=== PATIENT | female | born 1985 | race Caucasian/White ===

== ENCOUNTER 2019-11-18 05:31 | Inpatient (IN) ==
[2019-11-18] MEDS ORDERED: LACTATED RINGER'S 1,000 ML IV SCH ×2 (05:45→11:00)
--- NOTE | 2019-11-18 05:55 | History & Physical Report ---
Date of Service November 18, 2019 Assessment & Plan (1) Breech presentation: breech presentation at term. Plan Section. section. The patient was counseled to the nature of the procedure including alternatives such as labor. Risks were discussed including bleeding infection injury to bowel bladder ureter vessels and even baby. Deep Vein thrombosis, pulmonary embolus discussed. Breakdown of incision reviewed. Deep vein thrombosis pulmonary embolus hernia and failure of the incision to heal were discussed Patient verbalized understanding of this and was given ample time to ask questions History of Present Illness Primary Care Provider: Agnes Villarreal term breech with unsuccessful version attempt. Allergies Allergy/AdvReac Type Severity Reaction Status Date / Time amoxicillin Allergy Intermediate RASH AND Verified 11/17/19 09:13 SWELLING nickel Allergy Intermediate swelling, Verified 11/17/19 09:13 irritation Home Medications Home Medications Medication Instructions Recorded Confirmed Type breast pump #1 ea 10/13/19 11/17/19 Rx PNV cmb#95-ferrous fumarate-FA 1 tab PO DAILY 11/15/19 11/17/19 History [] Patient History Medical History History of anxiety History of depression HPV (human papilloma virus) infection Surgical History History of colposcopy S/P wisdom tooth extraction Family History (Updated 04/20/19 @ 10:57 by Candis Weiss) Grandfather (Maternal) Hypertension Hypercholesteremia Grandfather (Paternal) Hypertension Hypercholesteremia Father Hypertension Depression Grandmother (Maternal) Hypertension Osteoporosis Grandmother (Paternal) Hypertension Osteoporosis Social History (Updated 04/20/19 @ 10:58 by Candis Weiss) Preferred Language: Swedish Communication Ability: Effective Financial Administrative Assistant Required: No Beliefs That Will Affect Care: None marital status: marital status details: Toni Hopson (35) [phone] Current Living Situation: Spouse Current Living Situation Comment: 2 cats, 1 dog- pt not changing cat litter. current occupational status: employed current occupation: [place] @ [employer] Other Information That Helps Us Care for You: No Feels Safe at Home: Yes Safety Concerns: Feels Safe At This Time Smoking Status: Never smoker Do You Dip or Chew Tobacco: No ; Second Hand Exposure: No ; Tobacco Cessation Education Requested by Patient: No Hx Alcohol Use: No Hx Substance Use: No Physical Exam Constitutional: WD/WN, vitals as above Respiratory: normal respiratory effort, lungs clear to auscultation Cardiovascular: RRR, no murmur, no edema Gastrointestinal (Abdomen): normal bowel sounds, soft, nontender, no hepatosplenomegaly Genitourinary: OB Exam Abdomen: + heart tones and + breech OB Exam Monitor Tracing: + external FHT monitor used Results & Data Vital Signs (Past 12 Hours) Vital Signs Pulse BP 11/18/19 05:47 78 111/65 Code Status & VTE Plan VTE Prophylaxis Plan VTE Prophylaxis will be ordered: Yes Coding Level of Care Code None Diagnoses Breech presentation O32.1XX0
[2019-11-18 05:56] LABS: Basophils # (auto) 0.01 K/uL (0-0.2); Basophils % (auto) 0.1 %; Eosinophils % (auto) 1.4 %; Hematocrit (blood only) 41.7 % (37-47); Hemoglobin 14.2 g/dL (12.0-16.0); Immature Granulocytes # (auto) 0.05 K/uL (0.00-0.02); Immature Granulocytes % (auto) 0.7 %; Lymphocytes # (auto) 2.12 K/uL (1.2-3.4); Lymphocytes % (auto) 29.6 %; Mean Corpuscular Hemoglobin 31.6 pg (25-34); Mean Corpuscular Volume 92.9 fL (80-100); Mean Platelet Volume 11.7 fL (7.4-10.4); Monocytes # (auto) 0.52 K/uL (0.11-0.59); Monocytes % (auto) 7.3 %; Neutrophils # (auto) 4.36 K/uL (1.4-6.5); Neutrophils % (auto) 60.9 %; Platelet Count 135 K/uL (130-400); RDW Coefficient of Variation 12.9 % (11.5-14.5); RDW Standard Deviation 43.9 fL (36.4-46.3); Red Blood Count 4.49 M/uL (4.2-5.4); White Blood Count 7.16 K/uL (4.8-10.8)
[2019-11-18] MEDS ORDERED: GENTAMICIN SULFATE 100 MG in DEXTROSE 5% 100 ML IV SCH (06:00)
[2019-11-18] MEDS ORDERED: CLINDAMYCIN 900 MG in DEXTROSE 5% 50 ML IV SCH (06:00)
[2019-11-18] MEDS ORDERED: CITRIC ACID/SODIUM CITRATE 15 ML UDC PO SCH (06:00)
[2019-11-18 06:14] LABS: Mean Corpuscular Hgb Conc 34.1 g/dL (32-36)
--- NOTE | 2019-11-18 07:13 | History & Physical Bridge Note ---
Date of Service November 18, 2019 History & Physical Bridge Note I have examined the patient, reviewed the History & Physical and in the interval since the performance of the History & Physical I have noted the following changes of clinical significance: no changes noted
--- NOTE | 2019-11-18 07:26 | Anesthesiology Consultation ---
Date of Service November 18, 2019 Assessment & Plan Chart Review Chart Review: Acceptable Risk for Surgery Consults Requested none History Surgery Operation Date: 11/18/19 07:30 Proposed Procedures p Section in LD - Bryan. Anshul Love MD, FACOG Height/Weight Height: 5 ft 7 in Weight: 91.172 kg Allergies Allergy/AdvReac Type Severity Reaction Status Date / Time amoxicillin Allergy Intermediate RASH AND Verified 11/17/19 09:13 SWELLING nickel Allergy Intermediate swelling, Verified 11/17/19 09:13 irritation Medications Home Medications Medication Instructions Recorded Confirmed Last Taken breast pump #1 ea 10/13/19 11/17/19 Unknown PNV cmb#95-ferrous fumarate-FA 1 tab PO DAILY 11/15/19 11/17/19 Unknown [] NPO Date Last Intake of Fluids: 11/17/19 Time Last Intake of Fluids: 22:00 Date Last Intake of Solids: 11/17/19 Time Last Intake of Solids: 22:00 Past Medical History Medical History History of anxiety History of depression HPV (human papilloma virus) infection Past Family History Family History Grandfather (Maternal) Hypertension Hypercholesteremia Grandfather (Paternal) Hypertension Hypercholesteremia Father Hypertension Depression Grandmother (Maternal) Hypertension Osteoporosis Grandmother (Paternal) Hypertension Osteoporosis Past Surgical History Surgical History History of colposcopy S/P wisdom tooth extraction Social History Smoking Status: Never smoker Do You Dip or Chew Tobacco: No Hx Alcohol Use: No Hx Substance Use: No substance use type: does not use Physical Exam Vital Signs Last Vital Signs Temp 36.8 C 11/18/19 05:43 Pulse 78 11/18/19 05:47 Resp 18 11/18/19 05:58 BP 111/65 11/18/19 05:47 Testing Laboratory Results 11/18/19 05:44 Blood Type O Positive 11/18/19 05:41 Antibody Screen NEGATIVE 11/18/19 05:41
[2019-11-18] MEDS ORDERED: NALOXONE HCL 0.4 MG/1 ML VIAL/CARP IV PRN (07:27)
[2019-11-18] MEDS ORDERED: NALBUPHINE HCL INJ 10 MG/ML AMP IV PRN (07:27)
[2019-11-18] MEDS ORDERED: NALOXONE HCL 0.08 MG in SYRINGE 1.8 ML IV PRN (07:27)
[2019-11-18] MEDS ORDERED: NALOXONE HCL 1 MG in SODIUM CHLORIDE 0.9% 1000ML 1,000 ML IV PRN (07:27)
[2019-11-18] MEDS ORDERED: ePHEDrine sulfate 50 MG/ML AMP IV PRN (07:27)
[2019-11-18] MEDS ORDERED: LACTATED RINGER'S 500 ML IV PRN (07:27)
[2019-11-18] MEDS ORDERED: MoRPHine SULFATE PF 1 MG/ML 10 ML AMP/VIAL INT SPINAL ONE (07:27)
[2019-11-18] MEDS ORDERED: MoRPHine SULFATE 2 MG/ML CARP IV PRN (07:27)
[2019-11-18] MEDS ORDERED: PROMETHAZINE HCL 25 MG in SODIUM CHLORIDE 0.9% 50 ML IV PRN (07:27)
[2019-11-18] MEDS ORDERED: KETOROLAC 30 MG/ML VIAL IV PRN (07:27)
[2019-11-18] MEDS ORDERED: HYDROmorphone INJ 0.5 MG/0.5 ML SYR IV PRN (07:27)
[2019-11-18] MEDS ORDERED: ONDANSETRON INJ 2 MG/ML 2 ML VIAL IV PRN (07:27)
[2019-11-18] MEDS ORDERED: MEPERIDINE HCL 25 MG/ML CARP/VIAL IV PRN (07:27)
[2019-11-18] MEDS ORDERED: METOCLOPRAMIDE HCL 20 MG in SODIUM CHLORIDE 0.9% 50 ML IV PRN (07:27)
[2019-11-18] MEDS ORDERED: DiphenhydrAMINE HCL 50 MG/ML VIAL IV PRN (07:27)
[2019-11-18] MEDS ORDERED: DC INTRASPINAL MORPHINE SCH (07:30)
[2019-11-18] MEDS ORDERED: NO NARCOTICS OR SEDATIVES SCH (07:30)
[2019-11-18] MEDS ORDERED: SODIUM CHLORIDE 0.9% 1000ML 1,000 ML IV SCH (07:30)
[2019-11-18] MEDS ORDERED: MoRPHine SULFATE PF 1 MG/ML 10 ML AMP/VIAL ONE (08:09)
[2019-11-18] MEDS ORDERED: OXYTOCIN 10 UNITS/ML VIAL ONE (08:09)
[2019-11-18] MEDS ORDERED: CARBOPROST TROMETHAMINE 250 MCG/ML AMPUL ONE (08:26)
[2019-11-18] MEDS ORDERED: ePHEDrine sulfate 50 MG/ML AMP ONE (08:27)
[2019-11-18 08:37] LABS: CO2 Cord Arterial Blood 60 mmHg (39.1-73.5); HCO3 Cord Arterial Blood 25 mmol/L (19.7-28.5); PO2 Cord Arterial Blood 15 mmHg (4.1-31.7); pH Cord Arterial Blood 7.24 (7.1-7.38)
--- NOTE | 2019-11-18 08:39 | Operative Report ---
PG Post Operative Report Pre & Post Diagnosis Operation Date: 11/18/19 07:30 Pre-Op Diagnosis: Term , breech with unsuccessful version attempt Post-Op Diagnosis: Term , breech with unsuccessful version attempt. Living male child at 0803 I identified the patient and participated in the time-out.: Yes Procedure Operation Date: 11/18/19 07:30 Actual Procedures p Section in LD for living male child at 0803(Bilateral) - Ramy Love MD, FACOG Surgeon Ramy Love MD, FACOG [facility] Nurse Dr. Aguilar Estimated Blood Loss 600 Findings Consistent with Post-Op Diagnosis Specimens Cord gases, blood Description of Procedure Regional anesthetic was given by anesthesia patient had a Downs catheter inserted by nursing patient was prepped and draped in supine position with a leftward tilt preoperative antibiotics were given timeout performed Pickups with teeth were used to test the skin site and it was found adequate for incision scalpel used to make a Pfannenstiel incision cutting down through subcutaneous fat through the fascia fascia was then dissected laterally with the curved Singh's fascia was released superiorly and inferiorly from the rectus muscles with the curved Singh scissors, rectus muscle split peritoneal cavity entered in a superior location. Opening enlarged to allow exposure bladder retractor placed Metzenbaums used to dissect away the bladder flap low segment transverse incision made on the uterus with scalpel entry was done bluntly with the rotary shear operator's finger hysterotomy incision extended with the rotary shear operator's finger in the usual fashion baby was delivered then by flexion of the breech and pressure from the inventory control assistant on the abdomen then legs were delivered, arms swept toward the chest and delivered, then head delivered avoiding excessive extension, without excessive force live vigorous cord clamped and cut cord gases obtained cord blood obtained placenta removed manually within ensured all placenta removed with a moist lap sponge uterus exteriorized IV Pitocin had been started by anesthesia and uterine tone improved. The uterus was closed in 2 layers first layer and 0 Monocryl running locked second layer 0 Monocryl nonlocked after generous irrigation and suction of the cul-de-sac and bladder flap regions hemostasis was excellent uterus was placed back in the peritoneal cavity and hemostasis was excellent rectus muscles were inspected and found to be dry fascia closed with 0 Vicryl subcutaneous fat closed with 3-0 Vicryl prior to this subcutaneous fat was irrigated skin closed with 4-0 subcuticular Monocryl incision Steri-Stripped urine was clear at the end of the procedure It should be noted the anatomy of the uterus was normal, no septum or anomalies I attest to the content of the Intraoperative Record and any orders documented therein. Any exceptions are noted below.
[2019-11-18 08:40] LABS: Base Excess Cord Venous Blood -2.6 mEq/L (-7.7-1.9); Cord Venous Blood HCO3 23 mmol/L (18.4-26.8); Cord Venous Blood PCO2 44 mmHg (30.4-57.2); Cord Venous Blood PO2 29 mmHg (14.1-43.3); Cord Venous Blood pH 7.34 (7.20-7.44)
[2019-11-18 08:41] LABS: Oxygen Sat Cord Arterial Blood < 60.0 % (<60)
[2019-11-18] MEDS ORDERED: HYDROCORTISONE ACETATE 25 MG SUPP PR PRN (10:49)
[2019-11-18] MEDS ORDERED: MAGNESIUM HYDROXIDE SUSP 30 ML UDC PO PRN (10:49)
[2019-11-18] MEDS ORDERED: SUPERCREAM 0.870% 15 GM JAR EXT PRN (10:49)
[2019-11-18] MEDS ORDERED: BENZOCAINE 20% AER SPR 82.5 GM CAN EXT PRN (10:49)
[2019-11-18] MEDS ORDERED: NON-FORMULARY MEDICATION (Pnv Cmb#95-Ferrous Fumarate-Fa [Prenatal] 1 TAB) PO SCH (10:49)
[2019-11-18] MEDS ORDERED: SENNA 8.6 MG TAB PO PRN (10:49)
[2019-11-18] MEDS ORDERED: DIPHTHERIA/TETANUS/PERTUSSIS 0.5 ML SYR/VIAL IM ONE (11:00)
--- NOTE | 2019-11-18 11:50 | Anesthesiology Progress Note ---
Date of Service November 18, 2019 Anesthesia Post Procedure Vital Signs Vital Signs: Temp Pulse Pulse Resp BP BP Pulse Ox 11/18/19 11:45 59 L 96 11/18/19 11:41 50 L 109/57 L 11/18/19 11:40 50 L 95 11/18/19 11:35 62 96 11/18/19 11:31 53 L 112/59 L 11/18/19 11:30 54 L 97 11/18/19 11:25 52 L 96 11/18/19 11:21 55 L 119/58 L 11/18/19 11:20 66 98 11/18/19 11:15 56 L 96 11/18/19 11:10 56 L 105/57 L 96 11/18/19 11:05 54 L 97 11/18/19 11:00 56 L 114/59 L 97 11/18/19 10:55 57 L 97 11/18/19 10:50 59 L 114/59 L 96 11/18/19 10:45 52 L 97 11/18/19 10:40 56 L 107/55 L 96 11/18/19 10:35 63 97 11/18/19 10:30 57 L 109/56 L 97 11/18/19 10:25 65 97 11/18/19 10:20 53 L 105/57 L 97 11/18/19 10:15 65 97 11/18/19 10:10 52 L 112/59 L 97 11/18/19 10:05 59 L 96 11/18/19 10:00 56 L 111/57 L 97 11/18/19 09:55 53 L 97 11/18/19 09:50 63 105/55 L 97 11/18/19 09:45 56 L 96 11/18/19 09:40 36.4 C L 55 L 18 110/58 L 96 11/18/19 09:35 54 L 97 11/18/19 09:30 53 L 110/60 96 11/18/19 09:25 55 L 96 11/18/19 09:21 59 L 104/54 L 11/18/19 09:20 68 98 11/18/19 09:15 65 97 11/18/19 09:12 78 91 11/18/19 09:11 53 L 118/55 L 11/18/19 09:10 58 L 18 96 11/18/19 09:05 55 L 96 04/23/20 09:00 53 L 115/59 L 98 11/18/19 08:55 54 L 97 11/18/19 08:50 52 L 118/57 L 97 11/18/19 08:45 53 L 96 11/18/19 08:41 36.4 C L 55 L 55 L 16 122/60 122/60 11/18/19 08:40 57 L 97 11/18/19 05:58 18 11/18/19 05:47 78 111/65 11/18/19 05:43 36.8 C 18 Transfer of Care Handoff Completed per policy Notes Mental Status: alert / awake / arousable and participated in evaluation Patient Amnestic to Procedure: Yes Nausea / Vomiting: adequately controlled Pain: adequately controlled Airway Patency, RR, SpO2: stable & adequate BP & HR: stable & adequate Hydration State: stable & adequate Neuraxial Anesthesia: was administered and sensory block is resolving Anesthetic Complications: no major complications apparent
[2019-11-18] MEDS: OXYTOCIN 20 UNITS in LACTATED RINGER'S 1,000 ML IV SCH ×2 (12:50→20:23)
[2019-11-18] MEDS: SIMETHICONE 80 MG CHEW PO SCH ×3 (14:42→20:23)
[2019-11-18] MEDS: DOCUSATE SODIUM 100 MG CAP PO SCH (20:23)
[2019-11-19] MEDS ORDERED: KETOROLAC 30 MG/ML VIAL IV PRN (01:27)
[2019-11-19] MEDS ORDERED: MEPERIDINE HCL 50 MG/ML CARP IV PRN (01:27)
[2019-11-19] MEDS ORDERED: ONDANSETRON INJ 2 MG/ML 2 ML VIAL IV PRN (01:27)
[2019-11-19] MEDS ORDERED: DiphenhydrAMINE HCL 50 MG/ML VIAL IV PRN (01:27)
[2019-11-19] MEDS ORDERED: PROMETHAZINE HCL 25 MG in SODIUM CHLORIDE 0.9% 50 ML IV PRN (01:27)
[2019-11-19] MEDS ORDERED: OXYCODONE/ACETAMINOPHEN 5mg/325mg TAB PO PRN (01:27)
[2019-11-19] MEDS: IBUPROFEN 600 MG TAB PO PRN ×5 (05:13→23:39)
[2019-11-19 06:19] LABS: Basophils # (auto) 0.01 K/uL (0-0.2); Basophils % (auto) 0.1 %; Eosinophils # (auto) 0.12 K/uL (0-0.5); Eosinophils % (auto) 1.7 %; Hematocrit (blood only) 33.3 % (37-47); Hemoglobin 11.4 g/dL (12.0-16.0); Immature Granulocytes # (auto) 0.02 K/uL (0.00-0.02); Immature Granulocytes % (auto) 0.3 %; Lymphocytes # (auto) 1.13 K/uL (1.2-3.4); Lymphocytes % (auto) 16.4 %; Mean Corpuscular Hemoglobin 31.2 pg (25-34); Mean Corpuscular Hgb Conc 34.2 g/dL (32-36); Mean Corpuscular Volume 91.2 fL (80-100); Mean Platelet Volume 11.1 fL (7.4-10.4); Monocytes # (auto) 0.43 K/uL (0.11-0.59); Monocytes % (auto) 6.3 %; Neutrophils # (auto) 5.16 K/uL (1.4-6.5); Neutrophils % (auto) 75.2 %; Platelet Count 107 K/uL (130-400); RDW Coefficient of Variation 12.7 % (11.5-14.5); RDW Standard Deviation 42.7 fL (36.4-46.3); Red Blood Count 3.65 M/uL (4.2-5.4); White Blood Count 6.87 K/uL (4.8-10.8)
--- NOTE | 2019-11-19 07:50 | Obstetrical Progress Note ---
Date of Service November 19, 2019 Assessment & Plan (1) state: PPD 1 cont current care Subjective Ambulation: limited ambulation Voiding: no voiding problems Passing Gas:: No Diet Tolerance:: regular diet Lochia:: Small Feeding Type:: breast feeding Current Pain Level(1-10): 1 no ext pain Physical Exam Constitutional WD/WN, vitals as above Respiratory normal respiratory effort, lungs clear to auscultation Gastrointestinal (Abdomen) normal bowel sounds, soft, nontender, no hepatosplenomegaly (incision cdi, ext neg) Results & Data Vital Signs (Past 12 Hours) Vital Signs Temp Pulse Resp BP Pulse Ox 11/19/19 04:45 98.4 F 61 17 100/62 96 11/19/19 01:40 15 96 11/19/19 00:40 15 98 11/18/19 23:40 98.2 F 57 L 16 105/67 96 11/18/19 22:11 16 97 11/18/19 21:03 16 96 11/18/19 20:15 98.2 F 62 16 92/57 L 98 11/18/19 20:00 16 97
[2019-11-19] MEDS: SIMETHICONE 80 MG CHEW PO SCH ×4 (08:48→21:26)
[2019-11-19] MEDS: PRENATAL VITAMIN 1 TAB PO SCH (08:49)
[2019-11-19] MEDS: DOCUSATE SODIUM 100 MG CAP PO SCH ×2 (08:49→21:26)
--- NOTE | 2019-11-19 11:00 | Anesthesiology Progress Note ---
Date of Service November 19, 2019 Anesthesia Post Procedure Vital Signs Vital Signs: Temp Pulse Pulse Resp BP BP Pulse Ox 11/19/19 07:35 36.8 C 56 L 16 105/67 11/19/19 04:45 36.9 C 61 17 100/62 96 11/19/19 01:40 15 96 11/19/19 00:40 15 98 11/18/19 23:40 36.8 C 57 L 16 105/67 96 11/18/19 22:11 16 97 11/18/19 21:03 16 96 11/18/19 20:15 36.8 C 62 16 92/57 L 98 11/18/19 20:00 16 97 11/18/19 19:00 16 98 11/18/19 18:00 16 98 11/18/19 17:21 16 97 11/18/19 16:20 16 97 11/18/19 15:50 36.6 C 57 L 16 107/66 97 11/18/19 15:20 16 96 11/18/19 12:00 16 98 11/18/19 11:55 53 L 97 11/18/19 11:51 53 L 112/53 L 11/18/19 11:50 61 97 11/18/19 11:45 59 L 96 11/18/19 11:41 50 L 109/57 L 11/18/19 11:40 36.4 C L 50 L 16 95 11/18/19 11:35 62 96 11/18/19 11:31 53 L 112/59 L 11/18/19 11:30 54 L 97 11/18/19 11:25 52 L 96 11/18/19 11:21 55 L 119/58 L 11/18/19 11:20 66 98 11/18/19 11:15 56 L 96 11/18/19 11:10 56 L 105/57 L 96 11/18/19 11:05 54 L 97 11/18/19 11:00 56 L 114/59 L 97 Pain Intensity Abdomen: Pain Intensity: 6 Transfer of Care Handoff Completed per policy Notes Mental Status: alert / awake / arousable and participated in evaluation Nausea / Vomiting: adequately controlled Pain: adequately controlled Airway Patency, RR, SpO2: stable & adequate BP & HR: stable & adequate Hydration State: stable & adequate Neuraxial Anesthesia: was administered and sensory block resolved Anesthetic Complications: no major complications apparent and Pt Satisfied with anesthetic care Notes: Patient denies headache this morning. Denies weakness or residual numbness in lower extremity. Patient encouraged to contact anesthesia for any concerns or new headache.
[2019-11-19] MEDS ORDERED: bisacodyL 5 MG TABEC PO SCH (20:00)
[2019-11-20 06:38] LABS: Hematocrit (blood only) 33.3 % (37-47); Hemoglobin 11.4 g/dL (12.0-16.0)
--- NOTE | 2019-11-20 07:01 | Obstetrical Progress Note ---
Date of Service November 20, 2019 Assessment & Plan (1) state: satisfactory /post-op course continue current care plan Day #:: 2 Subjective Ambulation: ambulating normally Voiding: no voiding problems Passing Gas:: Yes Diet Tolerance:: regular diet Lochia:: Small Feeding Type:: breast feeding Review of Systems All systems reviewed & are unremarkable except as noted in HPI & below Physical Exam Constitutional WD/WN, vitals as above Gastrointestinal (Abdomen) Inspection/Auscultation: + abdominal surgical incision (intact & dry) Psychiatric A+Ox3, euthymic affect Genitourinary OB Exam Abdomen: + fundal height Fundus: + firm Results & Data Vital Signs (Past 12 Hours) Vital Signs Temp Pulse Resp BP 11/19/19 23:45 98.2 F 58 L 16 119/73
[2019-11-20] MEDS: IBUPROFEN 600 MG TAB PO PRN (08:31)
[2019-11-20] MEDS: PRENATAL VITAMIN 1 TAB PO SCH (08:31)
[2019-11-20] MEDS: DOCUSATE SODIUM 100 MG CAP PO SCH (08:31)
[2019-11-20] MEDS: SIMETHICONE 80 MG CHEW PO SCH (08:31)
[2019-11-20] MEDS ORDERED: bisacodyL 10 MG SUPP PR PRN (08:33)
--- NOTE | 2019-11-24 08:13 | Discharge Summary ---
Date of Service November 24, 2019 Admission HPI Per Admitting Provider term breech with unsuccessful version attempt. Admission Exam (Per Admitting) Constitutional WD/WN, vitals as above Respiratory normal respiratory effort, lungs clear to auscultation Cardiovascular RRR, no murmur, no edema Gastrointestinal (Abdomen) normal bowel sounds, soft, nontender, no hepatosplenomegaly (incision cdi, ext neg) Discharge Data Procedures Performed Operation Date: 11/18/19 07:30 Actual Procedures p Section in LD for living male child at 0803(Bilateral) - Ramy Love MD, [facility] Course (1) state: satisfactory /post-op course continue current care plan Postoperative from section patient meets discharge criteria as she is ambulating well tolerating an oral diet has minimal bleeding and no extremity pain. Discharge instructions were reviewed and prescriptions were sent to her pharmacy of choice patient advised to call with any concerns and follow-up in the office discussed Coding Level of Care Code None Diagnoses state Z39.2
== END 2019-11-20 13:05 | disposition home or self-care (01) | DRG 788 ==
LOC: 4S1 05:31 → EDSTATUS 07:30 → 4S2 12:24

== ENCOUNTER 2021-11-02 05:36 | Inpatient (IN) ==
--- NOTE | 2021-10-30 13:46 | Anesthesiology Consultation ---
Date of Service October 30, 2021 Assessment & Plan (1) Encounter for pre-operative examination: Chart Review Chart Review: spiritual counselor initiated Per nursing assessment 10/30/21, patient denies any recent travel. No known Covid infection in the past 90 days. Patient is fully vaccinated for Covid. No known Covid positive exposures or Covid related symptoms. Preop Covid testing scheduled 10/31/21= will await results C section 11/18/19= Done under SAB at L3-4 with one attempt. (Baby was breech) History Surgery Operation Date: 11/02/21 07:30 Proposed Procedures p Section in LD Delivery of baby through abdominal incision - Kelly Cerna MD, FACOG Height/Weight Height: 5 ft 7 in Weight: 92.986 kg Allergies Allergy/AdvReac Type Severity Reaction Status Date / Time amoxicillin Allergy Intermediate RASH AND Verified 10/30/21 08:52 SWELLING nickel Allergy Intermediate swelling, Verified 10/30/21 08:52 irritation Medications Home Medications Medication Instructions Recorded Confirmed Last Taken vit no.95-ferrous 1 tab PO DAILY 03/22/21 10/30/21 Unknown fumarate 28 mg-folic acid 800 mcg tablet () Past Medical History Medical History History of anxiety History of depression History of kidney infection 2007 *NO SURGICAL INTERVENTION REQUIRED HPV (human papilloma virus) infection Past Family History Family History Grandfather (Maternal) Hypercholesteremia Hypertension Grandfather (Paternal) Hypercholesteremia Hypertension Father Depression Hypertension Grandmother (Maternal) Osteoporosis Hypertension Grandmother (Paternal) Osteoporosis Hypertension Other No family history of adverse response to anesthesia Past Surgical History Surgical History History of delivery X 1 History of colposcopy Nausea and vomiting after administration of anesthetic agent S/P wisdom tooth extraction Social History Smoking Status: Never smoker Hx Alcohol Use: No Hx Substance Use: No substance use type: does not use
[2021-11-02] MEDS ORDERED: GENTAMICIN SULFATE 470 MG in DEXTROSE 5% 100 ML IV SCH (06:00)
[2021-11-02] MEDS ORDERED: CLINDAMYCIN 900 MG in DEXTROSE 5% 50 ML IV SCH (06:00)
[2021-11-02] MEDS ORDERED: CITRIC ACID/SODIUM CITRATE 15 ML UDC PO SCH (06:00)
[2021-11-02] MEDS ORDERED: LACTATED RINGER'S 1,000 ML IV SCH ×2 (06:00→09:11)
[2021-11-02] MEDS ORDERED: GENTAMICIN CONSULT ACTIVE PRN (06:22)
[2021-11-02 06:50] LABS: Hematocrit (blood only) 40.2 % (37-47); Mean Corpuscular Hemoglobin 31.8 pg (25-34); Mean Corpuscular Hgb Conc 34.8 g/dL (32-36); Mean Corpuscular Volume 91.4 fL (80-100); Platelet Count 123 K/uL (130-400); RDW Coefficient of Variation 13.2 % (11.5-14.5); RDW Standard Deviation 43.8 fL (36.4-46.3); White Blood Count 6.27 K/uL (4.8-10.8)
[2021-11-02 06:51] LABS: Basophils # (auto) 0.02 K/uL (0-0.2); Basophils % (auto) 0.3 %; Eosinophils % (auto) 1.6 %; Giant Platelets 1+; Immature Granulocytes # (auto) 0.03 K/uL (0.00-0.02); Immature Granulocytes % (auto) 0.5 %; Lymphocytes # (auto) 2.44 K/uL (1.2-3.4); Lymphocytes % (auto) 38.9 %; Monocytes # (auto) 0.53 K/uL (0.11-0.59); Monocytes % (auto) 8.5 %; Neutrophils # (auto) 3.15 K/uL (1.4-6.5); Neutrophils % (auto) 50.2 %; Platelet Estimate Decreased (Normal)
[2021-11-02] MEDS ORDERED: OXYTOCIN 10 UNITS/ML 10ML VIAL ONE (06:56)
[2021-11-02] MEDS ORDERED: PHENYLEPHRINE 100MCG/ML 5ML SYR ONE (06:56)
[2021-11-02] MEDS ORDERED: ONDANSETRON INJ 2 MG/ML 2 ML VIAL ONE (06:56)
[2021-11-02] MEDS ORDERED: fentaNYL citrate 100 MCG/2 ML VIAL ONE (06:57)
[2021-11-02] MEDS ORDERED: MoRPHine SULFATE PF 1 MG/ML 10 ML AMP/VIAL ONE (06:57)
--- NOTE | 2021-11-02 07:22 | History & Physical Bridge Note ---
Date of Service November 02, 2021 History & Physical Bridge Note I have examined the patient, reviewed the History & Physical and in the interval since the performance of the History & Physical I have noted the following changes of clinical significance: no changes noted
[2021-11-02] MEDS ORDERED: ceFAZolin 2000MG 2,000 MG/15 ML SYR IV ONE (07:40)
[2021-11-02] MEDS ORDERED: ceFAZolin 2000MG 2,000 MG/15 ML SYR IV SCH (07:45)
[2021-11-02] MEDS ORDERED: NALOXONE HCL 0.4 MG/1 ML VIAL/CARP IV PRN (08:05)
[2021-11-02] MEDS ORDERED: NALOXONE HCL 0.08 MG in SYRINGE 1.8 ML IV PRN (08:05)
[2021-11-02] MEDS ORDERED: diphenhydrAMINE 50 MG/ML VIAL IV PRN (08:05)
[2021-11-02] MEDS ORDERED: NALBUPHINE HCL INJ 10 MG/ML AMP IV PRN (08:05)
[2021-11-02] MEDS ORDERED: MoRPHine SULFATE 2 MG/ML CARP IV PRN (08:05)
[2021-11-02] MEDS ORDERED: NALOXONE HCL 1 MG in SODIUM CHLORIDE 0.9% 1000ML 1,000 ML IV PRN (08:05)
[2021-11-02] MEDS ORDERED: ePHEDrine sulfate 50 MG/ML AMP IV PRN (08:05)
[2021-11-02] MEDS ORDERED: MoRPHine SULFATE PF 1 MG/ML 10 ML AMP/VIAL INT SPINAL ONE (08:05)
[2021-11-02] MEDS ORDERED: LACTATED RINGER'S 500 ML IV PRN (08:05)
[2021-11-02] MEDS ORDERED: ONDANSETRON INJ 2 MG/ML 2 ML VIAL IV PRN ×2 (08:05→10:00)
[2021-11-02] MEDS ORDERED: ePHEDrine sulfate 50 MG/ML AMP ONE (08:12)
[2021-11-02] MEDS ORDERED: SODIUM CHLORIDE 0.9% 1000ML 1,000 ML IV SCH (08:15)
[2021-11-02] MEDS ORDERED: DC INTRASPINAL MORPHINE SCH (08:15)
[2021-11-02] MEDS ORDERED: NO NARCOTICS OR SEDATIVES SCH (08:15)
--- NOTE | 2021-11-02 08:41 | Post Operative Brief Note ---
PG Immediate Post Op with CF Date of Surgery November 02, 2021 Pre & Post Diagnosis Operation Date: 11/02/21 07:30 Pre-Op Diagnosis: 40.6 weeks intrauterine Prior for Repeat Post-Op Diagnosis: same I identified the patient and participated in the time-out.: Yes Procedure Operation Date: 11/02/21 07:30 Actual Procedures p Repeat Low Transverse Section - Kelly Cerna MD, FACOG Surgeon Kelly Cerna MD, FACOG Beaming Machine Operator Char Estimated Blood Loss 500 Findings Consistent with Post-Op Diagnosis (viable male apgars 8,9 normal uterus tubes and ovaries bilaterally) Fluids 1000 Specimens Specimen Description: cord blood placenta-hold Drains Downs Catheter (inserted after spinal anesthesia without difficulty for immediate return of yellow urine) Anesthesia Type Spinal Complications none Disposition Accompanied Patient To Recovery: No Disposition: Recovery Room
--- NOTE | 2021-11-02 08:54 | Anesthesiology Progress Note ---
Date of Service November 02, 2021 Anesthesia Post Procedure Vital Signs Vital Signs: Temp Pulse Resp BP Pulse Ox 11/02/21 08:49 63 135/57 L 11/02/21 08:48 66 92 11/02/21 05:57 36.6 C 18 11/02/21 05:53 36.6 C 64 18 118/67 Transfer of Care Handoff Completed per policy Notes Mental Status: alert / awake / arousable and participated in evaluation Patient Amnestic to Procedure: No Nausea / Vomiting: adequately controlled Pain: adequately controlled Airway Patency, RR, SpO2: stable & adequate BP & HR: stable & adequate Hydration State: stable & adequate Neuraxial Anesthesia: was administered and sensory block is resolving Anesthetic Complications: no major complications apparent and Pt Satisfied with anesthetic care
--- NOTE | 2021-11-02 08:55 | Operative Report ---
PG Post Operative Report Pre & Post Diagnosis Operation Date: 11/02/21 07:30 Pre-Op Diagnosis: 40.6 weeks intrauterine Prior section Desires Repeat section Post-Op Diagnosis: same I identified the patient and participated in the time-out.: Yes Procedure Operation Date: 11/02/21 07:30 Actual Procedures p Repeat Low Transverse Section Surgeon Kelly Cerna MD, FACOG Vegetable Packer Char Estimated Blood Loss 500 Findings Consistent with Post-Op Diagnosis (viable male apgars 8,9 normal uterus tubes and ovaries bilaterally) Fluids 1000 Specimens cord blood Drains ambrose Anesthesia Type Spinal Complications none Disposition Accompanied Patient To Recovery: No Disposition: Recovery Room Indications 36yo at 40 6/7 wks ottoniel presents to L&D for planned section delivery. She had wanted to but no labor and unfavorable cervix and accepts repeat c/s today due to postdatism at this time. No rom, no vb. +FM. Had contractions overnight but cervix still unfavorable. Ready to proceed. Discussed preop antibiotic use and patient accepts use of Kefzol and we did review her allergies and reactions. Description of Procedure The patient was taken to the operating room and identified. After adequate anesthesia was obtained, she was placed in the supine position with a leftward tilt on the operating table and prepped and draped in the usual sterile fashion. A ambrose catheter had already been placed. The knife was used to create a Pfannensteil skin incision that was carried down to the underlying layer of fascia. The fascia was nicked in the midline and this opening was extended laterally using Singh scissors. Jose clamps were placed on the superior and inferior aspect of the fascial incision tenting it upward and the underlying rectus muscles were dissected off the overlying fascia both sharply and bluntly using Singh scissors. The rectus muscles were bluntly in the midline. The peritoneal cavity was bluntly entered into. This opening was stretched. The bladder blade was placed. The vesicouterine peritoneum was elevated and opened up into and the bladder flap was created digitally and bladder blade was replaced. The knife was used to create a hysterotomy and this opening was stretched. The amniotic sac was ruptured for clear fluid. The operators hand was placed through the hysterotomy and the bladder blade was removed. The head was elevated and flexed and with fundal pressure the head was delivered. The shoulders and body were rapidly delivered. The cord was clamped and cut and the infant's mouth and nares were bulb suction. The infant was handed off to the awaiting pediatricians. Cord blood was obtained. The placenta was manually expressed. The uterus was exteriorized and cleared of all clots and debris. Dilute IV Pitocin was begun. The uterine tone was improving. The hysterotomy was closed in a running interlocking fashion using 0 Vicryl followed by a second imbricating layer of 0 Vicryl. The hysterotomy was hemostatic. The pelvis was suctioned. The uterus was returned to the abdomen. The gutters were cleared of all clots and debris. The hysterotomy was reinspected and noted to be hemostatic. The fascia was then closed in running fashion using 0 Vicryl. The subcutaneous fat was copiously irrigated and reapproximated using 2-0 chromic. The skin was closed in a subcuticular fashion using 4-0 Vicryl. At this point the procedure was terminated. The patient was transferred to the recovery room in stable condition. All sponge, lap and needle counts are correct x2. I attest to the content of the Intraoperative Record and any orders documented therein. Any exceptions are noted below. OB Procedure Charges [id number]
[2021-11-02] MEDS ORDERED: PROMETHAZINE HCL 25 MG in SODIUM CHLORIDE 0.9% 50 ML IV PRN (09:11)
[2021-11-02] MEDS ORDERED: SENNA 8.6 MG TAB PO PRN (09:11)
[2021-11-02] MEDS ORDERED: MAGNESIUM HYDROXIDE SUSP 30 ML UDC PO PRN (09:11)
[2021-11-02] MEDS ORDERED: ZOLPIDEM TARTRATE 5 MG TAB PO PRN (09:11)
[2021-11-02] MEDS ORDERED: HYDROCORTISONE ACETATE 25 MG SUPP PR PRN (09:11)
[2021-11-02] MEDS ORDERED: DIPHTHERIA/TETANUS/PERTUSSIS 0.5 ML SYR/VIAL IM ONE (09:11)
[2021-11-02] MEDS ORDERED: BENZOCAINE 20% AER SPR 82.5 GM CAN EXT PRN (09:11)
[2021-11-02] MEDS: OXYTOCIN 20 UNITS in LACTATED RINGER'S 1,000 ML IV SCH ×2 (10:56→18:27)
[2021-11-02] MEDS: KETOROLAC 30 MG/ML VIAL IV PRN ×3 (12:44→23:57)
[2021-11-02] MEDS: SIMETHICONE 80 MG CHEW PO SCH ×3 (13:20→20:39)
[2021-11-02] MEDS: DOCUSATE SODIUM 100 MG CAP PO SCH (20:39)
[2021-11-03] MEDS ORDERED: diphenhydrAMINE Capsule 25 MG CAP PO PRN (02:05)
[2021-11-03] MEDS ORDERED: diphenhydrAMINE 50 MG/ML VIAL IV PRN (02:05)
[2021-11-03 07:28] LABS: Hematocrit (blood only) 34.6 % (37-47); Hemoglobin 11.7 g/dL (12.0-16.0); Mean Corpuscular Hgb Conc 33.8 g/dL (32-36); Mean Corpuscular Volume 91.8 fL (80-100); Mean Platelet Volume 12.5 fL (7.4-10.4); Platelet Count 85 K/uL (130-400); RDW Coefficient of Variation 13.1 % (11.5-14.5); RDW Standard Deviation 43.8 fL (36.4-46.3); Red Blood Count 3.77 M/uL (4.2-5.4); White Blood Count 7.29 K/uL (4.8-10.8)
[2021-11-03 07:36] LABS: Basophils # (auto) 0.02 K/uL (0-0.2); Basophils % (auto) 0.3 %; Eosinophils # (auto) 0.14 K/uL (0-0.5); Eosinophils % (auto) 1.9 %; Giant Platelets 1+; Immature Granulocytes # (auto) 0.01 K/uL (0.00-0.02); Immature Granulocytes % (auto) 0.1 %; Lymphocytes % (auto) 19.2 %; Monocytes # (auto) 0.41 K/uL (0.11-0.59); Monocytes % (auto) 5.6 %; Neutrophils # (auto) 5.31 K/uL (1.4-6.5); Neutrophils % (auto) 72.9 %
--- NOTE | 2021-11-03 08:44 | Obstetrical Progress Note ---
Date of Service November 03, 2021 Assessment & Plan (1) Encounter for care and examination after delivery: 36yo day 1 S/p LTCS. Doing well. Routine care Subjective Ambulation: ambulating normally Voiding: no voiding problems Passing Gas:: Yes Diet Tolerance:: regular diet Lochia:: Moderate Feeding Type:: breast feeding Physical Exam Constitutional WD/WN, vitals as above Respiratory normal respiratory effort; no respiratory distress and no labored breathing Gastrointestinal (Abdomen) Inspection/Auscultation: abdomen normal to inspection; abdomen not distended Percussion/Palpation: abdomen soft; abdomen nontender, no guarding and abdomen not rigid Incision C/D/I Genitourinary OB Exam Abdomen: + fundal height Fundus: + firm and + relation to umbilicus (Below); not tender or not boggy Results & Data ([facility]) Vital Signs (Past 12 Hours) Vital Signs Temp Pulse Resp BP Pulse Ox 11/03/21 02:00 20 98 11/03/21 01:00 20 98 11/03/21 00:31 20 11/03/21 00:00 20 98 11/02/21 23:22 36.5 C 52 L 16 115/76 96 11/02/21 22:30 16 95 11/02/21 21:30 16 96
[2021-11-03] MEDS: FERROUS SULFATE 325 MG TAB PO SCH (09:04)
[2021-11-03] MEDS: SIMETHICONE 80 MG CHEW PO SCH ×4 (09:04→20:46)
[2021-11-03] MEDS: DOCUSATE SODIUM 100 MG CAP PO SCH ×2 (09:04→20:46)
[2021-11-03] MEDS: PRENATAL VITAMIN 1 TAB PO SCH (09:04)
[2021-11-03] MEDS: oxyCODONE/ACETAMINOPHEN 5mg/325mg TAB PO PRN ×3 (09:31→20:46)
[2021-11-03] MEDS: IBUPROFEN 600 MG TAB PO PRN ×3 (09:31→20:46)
[2021-11-04] MEDS: oxyCODONE/ACETAMINOPHEN 5mg/325mg TAB PO PRN ×2 (02:00→06:19)
[2021-11-04] MEDS: IBUPROFEN 600 MG TAB PO PRN ×2 (02:00→06:19)
[2021-11-04 07:04] LABS: Hematocrit (blood only) 35.7 % (37-47); Hemoglobin 12.3 g/dL (12.0-16.0)
--- NOTE | 2021-11-04 07:04 | Obstetrical Progress Note ---
Date of Service November 04, 2021 Assessment & Plan (1) Encounter for care and examination after delivery: doing well, desires d/c home, some drainage, keep incision dry. plan 6wks pp check. instructions reviewed. hgb noted. checked on papdmp. no issues. pain meds sent. Day #:: 2 Subjective Ambulation: ambulating normally Voiding: no voiding problems Diet Tolerance:: regular diet Lochia:: Small Feeding Type:: breast feeding no pain issues, doing well. desires dc home. Constitutional: + as per Subjective / HPI Physical Exam Constitutional WD/WN, vitals as above Respiratory normal respiratory effort, lungs clear to auscultation Cardiovascular Rate/Rhythm: regular rate and regular rhythm Gastrointestinal (Abdomen) Inspection/Auscultation: abdomen normal to inspection and + abdominal surgical incision (incision c/i. some drainage. no redness. ) Percussion/Palpation: abdomen soft fundus firm 1 cm below umbilicus Musculoskeletal nt calves no edema Neurologic grossly normal Psychiatric A+Ox3, euthymic affect Results & Data ([facility]) Vital Signs (Past 12 Hours) Vital Signs Temp Pulse Resp BP Pulse Ox 11/03/21 23:50 98.4 F 58 L 18 104/67 95 11/03/21 20:35 98.2 F 62 18 108/69 95
[2021-11-04] MEDS: DOCUSATE SODIUM 100 MG CAP PO SCH (08:14)
[2021-11-04] MEDS: FERROUS SULFATE 325 MG TAB PO SCH (08:14)
[2021-11-04] MEDS: PRENATAL VITAMIN 1 TAB PO SCH (08:14)
[2021-11-04] MEDS: SIMETHICONE 80 MG CHEW PO SCH (08:14)
--- NOTE | 2021-11-08 09:54 | Discharge Summary ---
Date of Service Day of admission: November 02, 2021 Day of discharge: November 04, 2021 Admission HPI Per Admitting Provider 36yo at 40 6/7 wks for planned repeat c/s with history of prior section Patient had wanted to but no labor and unfavorable cervix. Now ready to proceed with planned c/s with postdatism. Rh pos, RI, GBS neg Discharge Data Consultations 11/02/21 05:36 Consult Anesthesiology Stat Procedures Performed Operation Date: 11/02/21 07:30 Actual Procedures p Repeat Low Transverse Section in LD OR live male infant at 0809 - Kelly Cerna MD, [facility] Course (1) Previous section complicating : The patient underwent the above stated procedure without incident and her postoperative course and recovery was uncomplicated. On her postoperative day #2 she was tolerating a regular diet, voiding spontaneously, ambulating without problem and was using oral meds for adequate pain control. Her postoperative hemoglobin was 12.1. She was given written and verbal discharge instructions and told to followup in office at 6wks. She was given appropriate pain medicine prescriptions. She was checked on [place] PDMP before sending meds. Coding Level of Care Code None Diagnoses Previous section complicating O34.219
== END 2021-11-04 13:00 | disposition home or self-care (01) | DRG 788 ==
LOC: 4S1 05:36 → EDSTATUS 07:30 → 4E1 11:15